=== PATIENT | male | born 1970 | race Caucasian/White ===

== ENCOUNTER → 2020-10-06 15:10 | Outpatient (BNVA) | payer OTHER, SELFPAY | PROVIDERS: Family Provider Internal Medicine; PCP Internal Medicine; Referring Provider Internal Medicine; Visit Provider Podiatrist Foot & Ankle Surgery | DX: M25.571 Pain in right ankle and joints of right foot (principal) | CPT/HCPCS: 73630 ==

== ENCOUNTER 2021-07-27 13:07 | Outpatient (RCR) | payer SELFPAY | END 2021-08-04 23:59 | disposition home or self-care (01) | LOC: CR 13:07 | PROVIDERS: Family Provider Internal Medicine; PCP Internal Medicine; Referring Provider Internal Medicine Cardiovascular Disease; Visit Provider Internal Medicine Cardiovascular Disease | DX: I25.10 Atherosclerotic heart disease of native coronary artery without angina pectoris (principal) ==

== ENCOUNTER 2021-08-04 07:38 | Outpatient (CLI) | payer BC, SELFPAY ==
[2021-08-04 07:43] VITALS: BMI 34.7
--- NOTE | 2021-08-04 08:46 | NMCV_ITS ---
NM sarkis perf SPECT r/s* [id number] Michael Browning Age: 51 Gender: M : 1970 Exam Date: 08/04/2021 08:44 Ordering Phys: Joel Loo MD ([email or web address]) Technologist: MARISOL Hood Exam Location: [facility] Indications: SHORTNESS OF BREATH STRESS TEST [facility] IMAGE PROTOCOL Rest/Stress 1 Lexiscan Day Radiopharmaceutical Dose (mCi) Administration Site Administered by Rest: Tc-99m 10.8 IV MARISOL Hood Sestamibi Stress:Tc-99m 32.6 IV MARISOL Hood Sestamibi Rest: 04-Aug-2021 60 Discovery 630 Stress: 04-Aug-2021 30 Discovery 630 0.4mg Lexiscan. Images obtained in supine and prone position. SPECT RESULTS Technical Quality: Excellent Raw Data Analysis: Normal Image Corrections: No attenuation or motion correction applied Summed Stress Score: 0 Summed Rest Score: 4 Summed Difference Score: 0 PERFUSION FINDINGS Small area of slightly decreased tracer uptake in the inferior wall region, with no significant reversibility. FUNCTIONAL RESULTS (calculated via Gated SPECT) Stress Image LV EF (%): 66 Stress EDV (mL):92 TID: 0.86 Stress ESV (mL):31 FUNCTIONAL FINDINGS: Segmental wall motion analysis revealing no gross wall motion normalities. IMPRESSIONS 1. Myocardial perfusion imaging revealing a small area of slightly decreased persistent tracer uptake in the inferior wall region, most likely represent attenuation artifact. 2. Normal LV ejection fraction of 66%. 3. LV wall motion analysis revealing no gross wall motion abnormalities. 4. Normal LV volume. No significant coronary ischemia, based on the above findings Dr Joel Loo MD [facility] (Electronically Signed) Final Date: 04 August 2021 14:47 S
--- NOTE | 2021-08-04 08:46 | ECG_ITS ---
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 Interpretive Statements NAME OF STUDY: LEXISCAN SESTAMIBI STRESS TEST INDICATION: Atypical Chest Pain PROCEDURE: At the baseline, the EKG revealed normal sinus rhythm with a heart rate of 76 bpm. Early repolarization changes. The baseline blood pressure was 127/71 mm Hg with a heart rate of 76 beats/min. Lexiscan was infused over a period of 20 seconds. A total of 0.4 milligrams of Lexiscan was infused. The stress phase was continued for a total of 5 minutes. Heart rate at the end of the stress phase was 84 with a blood pressure 148/68. The EKG at the peak infusion revealed no significant changes. Sestamibi was injected 20 seconds after the Lexiscan infusion. Blood pressure at the end of the recovery phase was 103/75 with a heart rate of 79 per minute. CONCLUSION: 1. No significant EKG changes with the LexiScan infusion 2. No LexiScan induced chest pain or cardiac arrhythmia 3. Normal blood pressure and heart rate response 4. Sestamibi/sestamibi perfusion scan pending; see separate report. Electronically Signed On 08-12-2021 0:25:28 CDT by Joel Loo M.D. [email or web address]
--- NOTE | 2021-08-04 09:30 | SUR.PREOP ---
UNABLE TO COMPLETE STRESS/TEST CHANGE Unable to complete treadmill stress. Maximal HR was 72%. Dr Loo notified. Verbal orders to change stress to Lexiscan achieved. Protocol aborted. Patient agreeable to change. Orders noted.
[2021-08-04] MEDS: regadenoson 0.4 Mg/5 ml Syringe IVP (09:44)
[2021-08-04 10:09] VITALS: BP 132/78; PULSE 62
== END 2021-08-04 07:39 | disposition home or self-care (01) ==
PROVIDERS: PCP Internal Medicine; Visit Provider Internal Medicine Cardiovascular Disease
DX: R07.89 Other chest pain (principal); R06.02 Shortness of breath
CPT/HCPCS: 78452; 93017; A9500; J2785

== ENCOUNTER 2021-09-05 11:40 | Outpatient (RCR) | payer SELFPAY | END 2021-10-04 23:59 | disposition home or self-care (01) | LOC: CR 11:40 | PROVIDERS: Family Provider Internal Medicine; PCP Internal Medicine; Referring Provider Internal Medicine Cardiovascular Disease; Visit Provider Internal Medicine Cardiovascular Disease | DX: I25.10 Atherosclerotic heart disease of native coronary artery without angina pectoris (principal) ==

== ENCOUNTER 2021-11-01 13:19 | Outpatient (RCR) | payer SELFPAY | END 2021-11-04 23:59 | disposition home or self-care (01) | LOC: CR 13:19 | PROVIDERS: Family Provider Internal Medicine; PCP Internal Medicine; Referring Provider Internal Medicine Cardiovascular Disease; Visit Provider Internal Medicine Cardiovascular Disease | DX: I25.10 Atherosclerotic heart disease of native coronary artery without angina pectoris (principal) ==

== ENCOUNTER 2023-03-29 09:52 | Outpatient (RCR) | payer SELFPAY | END 2023-04-04 23:59 | disposition home or self-care (01) | LOC: CR 09:52 | PROVIDERS: Family Provider Internal Medicine; PCP Internal Medicine; Referring Provider Internal Medicine Cardiovascular Disease; Visit Provider Internal Medicine Cardiovascular Disease | DX: I25.2 Old myocardial infarction (principal) ==

== ENCOUNTER 2023-05-22 10:19 | Outpatient (RCR) | payer SELFPAY | END 2023-06-04 23:59 | disposition home or self-care (01) | LOC: CR 10:19 | PROVIDERS: Family Provider Internal Medicine; PCP Internal Medicine; Referring Provider Internal Medicine Cardiovascular Disease; Visit Provider Internal Medicine Cardiovascular Disease | DX: I25.2 Old myocardial infarction (principal) ==

== ENCOUNTER 2023-07-05 09:26 | Outpatient (RCR) | payer SELFPAY | END 2023-07-05 23:59 | disposition home or self-care (01) | LOC: CR 09:26 | PROVIDERS: Family Provider Internal Medicine; PCP Internal Medicine; Referring Provider Internal Medicine Cardiovascular Disease; Visit Provider Internal Medicine Cardiovascular Disease | DX: I25.2 Old myocardial infarction (principal) ==

== ENCOUNTER 2023-07-06 15:34 | Outpatient (RCR) | payer SELFPAY | END 2023-08-04 23:59 | disposition home or self-care (01) | LOC: CR 15:34 | PROVIDERS: Family Provider Internal Medicine; PCP Internal Medicine; Referring Provider Internal Medicine Cardiovascular Disease; Visit Provider Internal Medicine Cardiovascular Disease | DX: I25.2 Old myocardial infarction (principal) ==

== ENCOUNTER 2023-09-18 11:42 | Outpatient (RCR) | payer SELFPAY | END 2023-10-04 23:59 | disposition home or self-care (01) | LOC: CR 11:42 | PROVIDERS: Family Provider Internal Medicine; PCP Internal Medicine; Visit Provider Internal Medicine Cardiovascular Disease | DX: I25.10 Atherosclerotic heart disease of native coronary artery without angina pectoris (principal); R07.89 Other chest pain ==

== ENCOUNTER 2023-10-05 13:41 | Outpatient (RCR) | payer SELFPAY | END 2023-11-04 23:59 | disposition home or self-care (01) | LOC: CR 13:41 | PROVIDERS: Family Provider Internal Medicine; PCP Internal Medicine; Visit Provider Internal Medicine Cardiovascular Disease | DX: I25.2 Old myocardial infarction (principal) ==